=== PATIENT | male | born 1940 | race Caucasian/White ===

== ENCOUNTER → 2021-04-03 | Outpatient (CLI) | payer MEDICARE, OTHER ==
[~2021-04-03] MED LIST: ALTACE; ASPIRIN EC325 M1; CLOPIDOGREL; FLOMAX PO; METFORMIN; VITAMINS A-D-E1 EACH; ZOCOR; [UNRECOGNIZED DRUG - CODE]
== END ==
LOC: M.RAD 13:43
PROVIDERS: ATTEND Family Medicine
DX: M47.22 Other spondylosis with radiculopathy, cervical region (principal); M54.2 Cervicalgia; M48.02 Spinal stenosis, cervical region

== ENCOUNTER → 2021-05-01 | Outpatient (CLI) | payer MEDICARE, OTHER | LOC: M.LAB 11:52 | PROVIDERS: ATTEND Orthopaedic Surgery | DX: Z01.812 Encounter for preprocedural laboratory examination (principal); Z20.822 Contact with and (suspected) exposure to COVID-19 ==